=== PATIENT | male | born 1965 | race African-American/Black ===

== ENCOUNTER 2017-04-28 12:04 | Inpatient (IN) ==
[2017-04-28] MEDS ORDERED: NS 1,000 ML IV ONE ×3 (13:01→15:39)
--- NOTE | 2017-04-28 13:45 | EKG Report ---
Test Performed on : 04/28/2017 1:09:53 PM Test Reason : CHEST PAIN Blood Pressure : / mmHG Vent. Rate : 089 BPM Atrial Rate : 089 BPM P-R Int : 150 ms QRS Dur : 088 ms QT Int : 372 ms P-R-T Axes : 063 062 064 degrees QTc Int : 452 ms Normal sinus rhythm. Normal ECG No previous ECGs available Unconfirmed Result
[2017-04-28 14:18] LABS: URINE CULTURE PL NEEDED? NO
[2017-04-28 14:20] LABS: MANUAL DIFF NEEDED? NO
[2017-04-28 14:22] LABS: BASO% 0.1 % (0.0-0.8); HEMOGLOBIN 15.8 g/dL (14.0-18.0); IMM GRAN# 0.03 X1000 (0.0-0.04); IMM GRAN% 0.2 % (0.0-0.5); LYMPH# 1.82 X1000 (1.2-3.4); LYMPH% 13.7 % (20.5-51.1); MCH 27.9 PG (27-31); MCHC 35.1 g/dL (33-37); MCV 79.5 FL (81-99); MONO# 0.79 X1000 (0.11-0.59); MONO% 5.9 % (1.7-9.3); MPV 10.4 FL (7.4-10.4); NEUT% 80.1 % (42.2-75.2); PLT 354 X1000 (130-400); RBC 5.66 XMIL (4.7-6.1)
[2017-04-28 14:26] LABS: BILIRUBIN URINE NEGATIVE (NEGATIVE); BLOOD URINE NEGATIVE (NEGATIVE); CLARITY SL. CLOUDY (CLEAR); COLOR YELLOW; LEUKOCYTES URINE NEGATIVE (NEGATIVE); NITRITE URINE NEGATIVE (NEGATIVE); PROTEIN URINE NEGATIVE (NEGATIVE); UROBILINOGEN URINE NORMAL
[2017-04-28 14:30] LABS: URINE CAST WHITE CELL PRESENT /LPF; URINE EPITHELIAL CELLS <10 /HPF (<10); URINE RBC <10 /HPF (<10); URINE SOURCE CLEAN CATCH; URINE WBC <10 /HPF (<10)
[2017-04-28 14:42] LABS: ALBUMIN 4.4 g/dL (3.5-5.0); CALCIUM 9.5 mg/dL (8.8-10.2); MAGNESIUM 3.2 mg/dL (1.5-2.7); POTASSIUM 5.6 mmol/L (3.5-5.1); TOTAL BILIRUBIN 0.5 mg/dL (0.20-1.00); TOTAL PROTEIN 8.4 g/dL (6.3-8.3)
[2017-04-28 14:56] LABS: CK INDEX 2.7 (0.0-2.5); CK-MB 6.03 ng/mL (0.0-5.0)
[2017-04-28] MEDS ORDERED: HUMULIN R (PARKWAY) 100 UNITS in NS 100 ML IV SCH ×2 (15:00→15:48)
[2017-04-28 15:08] LABS: INR 1.14 (0.86-1.15); PROTIME 14.9 Seconds (12.1-15.5); PTT PL 24.2 Seconds (22.6-43.9)
[2017-04-28 15:23] LABS: BE -11.6 mmoll (-3.0-3.0); BLOOD TYPE ARTERIAL; DRAW SITE R RADIAL; METHB 1.1 % (0.0-1.5); O2(CT) 21.4 mL/dL (15.0-23.0); PCO2(98.6) 30 mmHg (35-45); PO2(98.6) 86 mmHg (60-100); SAMPLE BLOOD; SAO2 97.3 % (95.0-100.0); THB 16.1 g/dL (11.5-17.4); pH(98.6) 7.27 (7.35-7.45)
[2017-04-28 15:25] LABS: ALLEN TEST YES; MODALITY ROOM AIR
[2017-04-28] MEDS ORDERED: NS 1,000 ML ONE (15:26)
--- NOTE | 2017-04-28 16:36 | Diag Imaging Result Doc PS360 ---
EXAM: CHEST-PORTABLE INDICATION: weak TECHNIQUE: One view COMPARISON: None. FINDINGS: Inspiration is suboptimal. The lungs are grossly clear. There is no discrete pleural fluid collection or pneumothorax. There are calcified upper mediastinal lymph nodes on the right indicating prior granulomatous disease. The cardiomediastinal silhouette and central vasculature are grossly unremarkable, otherwise. IMPRESSION: Poor inspiration but no definite acute pathology. Electronically signed by Amador Tong 04/28/2017 4:33 PM
--- NOTE | 2017-04-28 17:26 | PROVIDER DOCUMENTATION ---
This chart was entered by Lisseth Galeano Scribe, acting as scribe for Ranjit Cespedes PA. HPI-General Adult - General Chief Complaint: Generalized Pain Stated Complaint: " POSSIBLY DEHYDRATED" Time Seen by Provider: 04/28/17 12:56 Source: patient Allergies/Adverse Reactions: Patient Allergies Allergy/AdvReac Type Severity Reaction Status Date / Time No Known Allergies Allergy Verified 02/08/15 20:45 Home Medications: Home Medication List Medication Instructions Recorded Confirmed Last Taken Type Canagliflozin [Invokana] 300 mg PO DAILY 04/28/17 04/28/17 04/28/17 History Fluconazole [Diflucan] 150 mg PO EVERY OTHER DAY 04/28/17 04/28/17 1 Day Ago History Losartan [Cozaar] 100 mg PO DAILY 04/28/17 04/28/17 04/28/17 History Meloxicam 15 mg PO DAILY 04/28/17 04/28/17 04/28/17 History Metformin HCl [Fortamet] 1,000 mg PO BID 04/28/17 04/28/17 04/28/17 12:20 History - History of Present Illness -Gen Adult Nature of Presenting Problems: 52 year old male presents to the ER with complaint of generalized pain since being diagnosed with type 2 diabetes earlier this week. Pt states he has not started taking his metformin yet. Pt describes his symptoms as weak, tired and with flank pain. Also complains of dry mouth. Denies fever. Location of Pain/Injury: reports: generalized Onset/Duration: reports: last week, other (this week) Timing: reports: still present Associated Symptoms: reports: fatigue, weakness, other (flank pain). denies: fever/chills - Diabetes Related Context Context: reports: other (recent type 2 diagnosis) Review of Systems - Adult - REVIEW OF SYSTEMS - ADULT Constitutional: denies: chills, fever Eyes: reports: no symptoms reported Ears, Nose, Mouth & Throat: reports: no symptoms reported Cardiovascular: reports: no symptoms reported Respiratory: reports: no symptoms reported Gastrointestinal: reports: no symptoms reported Genitourinary: reports: no symptoms reported Musculoskeletal: reports: no symptoms reported Integumentary: reports: no symptoms reported Neurological: reports: no symptoms reported Psychiatric: reports: no symptoms reported Endocrine: reports: no symptoms reported Hematologic/Lymphatic: reports: no symptoms reported Allergic/Immunologic: reports: no symptoms reported All Other Systems: Reviewed and Negative Past History - Adult - PAST MEDICAL HISTORY-ADULT Review of Records: reports: Nursing Assessment Review, Medications Reviewed Major Childhood Illnesses: reports: denies history Diabetes Type: Type 2 - PRIOR SURGERIES/PROCEDURES Surgical/Procedure History: reports: none - IMMUNIZATION STATUS Childhood Immunizations: See Nurse Assessment Flu Vaccine: See Nurse Assessment Physical Exam-General - PHYSICAL EXAM-ADULT Initial Vital Signs Reviewed: Yes - CONSTITUTIONAL General Appearance: alert - EYES Eyes: PERRL/EOMI, pink conjunctivae - HEAD, EARS, NOSE, MOUTH & THROAT HENMT: normocephalic/atraumatic, moist mucous membranes - NECK Neck: non-tender, full range of motion, normal inspection - RESPIRATORY Respiratory: chest non-tender, lungs clear - CARDIOVASCULAR Cardiovascular: normal peripheral pulses, regular rate, rhythm - GASTROINTESTINAL (ABDOMEN) Abdominal Exam: normal bowel sounds, non tender, soft, other (obese) - MUSCULOSKELETAL Back Exam: normal inspection, no CVA tenderness, no vertebral tenderness Extremity: normal range of motion, non-tender, normal gait Peripheral Pulses: radial (R): 2+, radial (L): 2+ - SKIN Integumentary: normal color, warm/dry - NEUROLOGIC Neurologic: grossly normal, no motor/sensory deficits - PSYCHIATRIC Psych/Mental Status: normal mood/affect, normal thought content, normal thought process, oriented x 3 Progress - PLAN OF CARE/RESULTS Progress/Plan/Lab Results: Vital Signs - 8 hr 04/28/17 12:12 Temperature 98 F Pulse Rate 99 H Respiratory Rate 20 Blood Pressure 161/110 O2 Sat by Pulse Oximetry 99 Orders Category Date Time Status Cardiac Monitoring DIRECTED Care 04/28/17 13:01 Active FSBS/Accucheck Result NOW Care 04/28/17 13:01 Active Saline Loc NOW Care 04/28/17 13:01 Active CBC WITH ELECTRONIC DIFF [HEME] Stat Lab 04/28/17 13:01 Uncollected CK PROFILE [SP CHEM] Stat Lab 04/28/17 13:01 Uncollected COMPREHENSIVE METABOLIC PANEL [CHEM] Stat Lab 04/28/17 13:01 Uncollected MAGNESIUM [CHEM] Stat Lab 04/28/17 13:01 Uncollected PROTIME WITH INR [COAG] Stat Lab 04/28/17 13:01 Uncollected PTT [COAG] Stat Lab 04/28/17 13:01 Uncollected TROPONIN T Stat Lab 04/28/17 13:01 Uncollected UA NIMS W/REFLEX CULT PL [URINALYSIS] Stat Lab 04/28/17 13:01 Ordered 0.9% Sodium Chloride Inj [Ns] 1,000 ml Med 04/28/17 13:01 Active IV 999 mls/hr EKG [EKG] Stat Ther 04/28/17 13:01 Ordered case and plan of care discussed with Dr. Barrera. Result Diagrams: 04/28/17 14:10 04/28/17 14:10 - XRAY 1 XRAY Study: Chest Impression: Normal, See EMR Report - CONSULTS/PCP/HOSPITALIST Notification #1 *Consult/PCP/Hospitalist*: Dr. Ray Time Discussed: 15:37 Consult Disposition: Admit Departure - Departure Date of Disposition Decision: 04/28/17 Time of Disposition Decision: 15:37 DIAGNOSIS: Hyperkalemia DKA (diabetic ketoacidoses) Qualifiers: Diabetes mellitus type: type 2 Diabetes mellitus complication detail: without coma Qualified Code(s): E13.10 - Other specified diabetes mellitus with ketoacidosis without coma Leukocytosis Qualifiers: Leukocytosis type: other Qualified Code(s): D72.828 - Other elevated white blood cell count Disposition: ADMITTED INPATIENT 09 Certified Medical Emergency: Emergent Condition: Serious - Critical Care Note This patient required my direct & personal management of CC.: Yes Total Time (mins): 30 Critical Care Statement: This patient required my direct personal management to treat or rule out processes, the absence of which, could potentiallly result in sudden, clinically significant life or limb threatening deterioration. Attestation - Physician/ [place] Attestation Patient care was provided by Advanced Practice Provider:: Yes Advanced Practice Provider:: Ranjit Cespedes Advanced Practice Provider documentation review:: The Mid-level provider documentation, treatment plan and medical decision making was reviewed by the physician who agrees with all treatment and medical decision making by the MLP. This chart was documented by the indicated scribe, (Lisseth Galeano, Scribe) and accurately reflects the services I performed and decisions made by me, Ranjit Cespedes PA, as attested by the provider's signature.
--- NOTE | 2017-04-28 18:05 | HISTORY AND PHYSICAL ---
PRIMARY CARE PHYSICIAN: Dr. Perez Ray. CHIEF COMPLAINT: Somnolence, elevated blood sugar. HISTORY OF PRESENT ILLNESS: Mr. Rojelio Urban is a 52-year-old, male, first known to me approximately 1 week prior where he was established as a new patient in the office at 52 years old. The patient was overtly obese with no major family history of diabetes, but labs were drawn regarding the risk factors and for screening for any other conditions. The patient was noted to have a blood sugar greater than 300, A1c approximately 10, and was educated on how to draw blood sugar at home. Two days after our intervention the patient was unable to obtain the hypoglycemic medication and was noting that he was increasingly somnolent with inability to wake. He was taken to the [facility] via private vehicle and was found to have acidemia with blood sugar of 450. In the emergency room 2 L of fluid have been provided along with the placement of a 6 unit/minute insulin drip and blood sugars have come down to approximately 362. The patient reports some improvement in symptoms. The patient is overtly in DKA. SOCIAL HISTORY: The patient lives at home. Denies smoking, alcohol, or illicits. He is currently . PAST MEDICAL HISTORY: Patient's past medical history is only significant for the hyperglycemia and the obesity. This establishment of care with myself was the first time patient had seen a doctor in multiple decades. SURGICAL HISTORY: None. MEDICATIONS: Current medication list is really inappropriate at this time due to patient's inability to take them. He was prescribed metformin and Invokana but states he had not taken them prior to his evaluation in the emergency room. Based on that assumption, I would dictate his medications as no medications. ALLERGIES: No known drug allergies. CODE STATUS: The patient is a full code. PHYSICAL EXAMINATION: VITAL SIGNS: Temperature 99.0 degrees, pulse 99, respirations 18, blood pressure 161/110 and now 135/95. The patient has O2 saturations of 100% on room air. Current weight is 385. Patient is approximately 6 feet 5 inches. The patient has had no intake and no notable urine output aside from the labs that are drawn. GENERAL APPEARANCE: Patient is an obese male in no acute distress at this time. HEENT: Pupils are equal, round, reactive to light. Extraocular movements are intact. Neck: Supple. No JVD. Abdomen: Protuberant. Bowel sounds are noted. CV: Regular rate. No murmurs, gallops, or rubs. Lungs: Clear to auscultation anteriorly. No rhonchi noted. Extremities: No cyanosis, clubbing, or edema. 2+ pulses at the wrists and the popliteal fossa as noted on this exam. Skin: Patient has poor turgor and multiple skin wounds on the extensor areas of the body consistent with possible psoriatic disease. States that he had chemical clemons at this time, but noting that these are on the back of the hands, the back of the elbows and the knees, further delineation should be acknowledged. LABS: WBC 13.29, with an hemoglobin and hematocrit of 15 and 45 respectively, MCV of 79.5, neutrophils 80.1, lymphocytes low at 13.7. PT/INR within normal limits. PH shows acidosis at 7.27 with a pCO2 of 30, bicarb of 15.8, lactate elevated at 3.40. Sodium 125, potassium 5.6, creatinine 1.9 with no baseline for comparison. Glucose 438 down to 372. Magnesium 3.2 with a CK 224, and CK-MB 6.03, total protein 8.4. Urine is noted to be cloudy with 2+ ketones, 3+ glucose, no signs of infection noted, we will send for culture. ASSESSMENT/PLAN: A 52-year-old, male with new onset diabetes mellitus type 2 uncontrolled, presenting with: 1. Diabetic ketoacidosis. 2. Hyponatremia. 3. Hyperkalemia. 4. Acute kidney injury. 5. Leukocytosis with left shift. 6. Hypocarbia. 7. Elevated CK. 8. Poorly controlled hypertension. Patient will be admitted to the ICU for overnight evaluation. We will continue the insulin drip along with high-volume fluid resuscitation, and we will manage the electrolytes as appropriate and give IV blood pressure medications with parameters to be used. The patient will have blood sugar checks q.2 hours with the insulin dosage to be changed as patient drops below 200 of his blood sugar. It is okay for patient to have small amounts of food as long as we avoid high concentrated sweets, and to have water p.r.n. No need for calcium at this time. No need for bicarb at this time. We will watch patient closely and expect full recovery. Patient will likely be admitted for approximately 2 days as an expectation, and we will find an outpatient therapy that he can both agree with and thrive with. cc: Perez Ray MD
[2017-04-28] MEDS ORDERED: ZOFRAN IV PRN (19:29)
[2017-04-28] MEDS ORDERED: APRESOLINE IV PRN (19:29)
[2017-04-28 20:59] LABS: CALCIUM 8.9 mg/dL (8.8-10.2); POTASSIUM 4.2 mmol/L (3.5-5.1)
[2017-04-28] MEDS ORDERED: KLONOPIN PO SCH (21:00)
[2017-04-29] MEDS ORDERED: NS 1,000 ML ONE (00:15)
[2017-04-29] MEDS: NS 1,000 ML IV SCH ×3 (02:24→16:34)
[2017-04-29 03:33] LABS: MANUAL DIFF NEEDED? NO
[2017-04-29 03:50] LABS: BASO% 0.1 % (0.0-0.8); EOS# 0.03 X1000 (0.0-0.7); EOS% 0.3 % (0.0-10.0); HEMATOCRIT 42.1 % (42.0-52.0); HEMOGLOBIN 14.6 g/dL (14.0-18.0); IMM GRAN# 0.02 X1000 (0.0-0.04); IMM GRAN% 0.2 % (0.0-0.5); LYMPH# 2.71 X1000 (1.2-3.4); LYMPH% 22.7 % (20.5-51.1); MCH 27.9 PG (27-31); MCHC 34.7 g/dL (33-37); MCV 80.3 FL (81-99); MONO# 0.86 X1000 (0.11-0.59); MONO% 7.2 % (1.7-9.3); MPV 10.4 FL (7.4-10.4); NEUT% 69.5 % (42.2-75.2); PLT 281 X1000 (130-400); RBC 5.24 XMIL (4.7-6.1)
[2017-04-29 03:59] LABS: MAGNESIUM 2.8 mg/dL (1.5-2.7); POTASSIUM 4.1 mmol/L (3.5-5.1)
[2017-04-29] MEDS: LANTUS INSULIN (PARKWAY) SUBQ SCH (08:39)
[2017-04-29] MEDS: HUMULIN R DOSE (PARKWAY) SUBQ SCH ×4 (08:40→21:40)
[2017-04-29] MEDS: COZAAR PO SCH (08:40)
--- NOTE | 2017-04-29 09:02 | PROGRESS NOTE ---
DATE: 04/29/2017 PRIMARY CARE PHYSICIAN: Dr. Perez Ray. SUBJECTIVE: Overnight, the patient was moved to the ICU bed 3, stable. No signs of distress. Insulin GGT increased to 6 minutes per hour with normal saline at 150, tolerated it well. Fasting blood sugar did drop below 200. At midnight, the patient's GGT 1.5 minutes. VITAL SIGNS: Temperature 97.8 degrees, pulse 81, respirations 18, blood pressure 168/81, O2 saturation 90% on room air. Is and Os were high-volume positive balance about 1 L with 2 L urinary voiding. PHYSICAL EXAMINATION: General: Patient is alert and oriented. No acute distress. Slightly edematous. Neck: Supple. No JVD. CV: Regular rate. No murmurs, gallops, or rubs. Lungs: Decreased breath sounds at the bilateral bases. Increased work of breathing noted. Abdomen: Protuberant, distended secondary to obesity. Bowel sounds are scant. Extremities: Lower extremities have trace edema and 2+ pulses. Otherwise within normal limits. LABS: WBC 11.9 with MCV of 80, neutrophils at 69.5. Sodium 136, BUN at 44, with a creatinine of 1.4, glucose from 241 down to 186. Magnesium 2.8 down from 3.2. BNP of 10. Chest x-ray on 04/28/2017 showed poor inspiration but no acute pathology. ASSESSMENT AND PLAN: A 52-year-old male with: 1. Diabetic ketoacidosis. 2. Hyponatremia. 3. Hyperkalemia. 4. Acute kidney injury. 5. Leukocytosis with left shift, resolved. 6. Hypocarbia. 7. Poorly controlled hypertension. PLAN: The patient will be continued a day. GGT insulin will be stopped. Patient will be placed on low-dose sliding scale insulin. We will allow p.o. intake and closely monitor. A1c has already been performed. We will restart patient's p.o. blood pressure medications and check a chest x-ray in the morning as we continue the IV fluid resuscitation for the FANNIE with the avoidance of any issues associated with fluid overload. cc: Perez Ray MD
[2017-04-29 16:21] LABS: CALCIUM 8.4 mg/dL (8.8-10.2); POTASSIUM 4.3 mmol/L (3.5-5.1)
[2017-04-29 20:50] LABS: CALCIUM 8.4 mg/dL (8.8-10.2); POTASSIUM 4.3 mmol/L (3.5-5.1)
[2017-04-29] MEDS ORDERED: KLONOPIN PO SCH (21:00)
[2017-04-30 01:55] LABS: MANUAL DIFF NEEDED? NO
[2017-04-30 02:03] LABS: BASO% 0.2 % (0.0-0.8); EOS# 0.04 X1000 (0.0-0.7); EOS% 0.4 % (0.0-10.0); HEMATOCRIT 37.6 % (42.0-52.0); HEMOGLOBIN 13.1 g/dL (14.0-18.0); IMM GRAN# 0.01 X1000 (0.0-0.04); IMM GRAN% 0.1 % (0.0-0.5); LYMPH# 3.59 X1000 (1.2-3.4); LYMPH% 35.1 % (20.5-51.1); MCH 28.2 PG (27-31); MCHC 34.8 g/dL (33-37); MONO# 0.73 X1000 (0.11-0.59); MONO% 7.1 % (1.7-9.3); MPV 9.9 FL (7.4-10.4); NEUT% 57.1 % (42.2-75.2); PLT 264 X1000 (130-400); RBC 4.64 XMIL (4.7-6.1)
[2017-04-30 02:15] LABS: AGAP 15; BUN 30 mg/dL (8-22); CALCIUM 8.3 mg/dL (8.8-10.2); CHLORIDE 96 mmol/L (98-107); COSMO 272; MAGNESIUM 2.3 mg/dL (1.5-2.7); POTASSIUM 3.6 mmol/L (3.5-5.1); SODIUM 130 mmol/L (136-145); TCO2 19 mmol/L (25-35)
[2017-04-30] MEDS: NS 1,000 ML IV SCH ×2 (05:41)
[2017-04-30] MEDS: HUMULIN R DOSE (PARKWAY) SUBQ SCH (06:47)
[2017-04-30 08:22] VITALS: BP 143/70
[2017-04-30 08:23] LABS: AGAP 16; BUN 25 mg/dL (8-22); CALCIUM 8.5 mg/dL (8.8-10.2); CHLORIDE 98 mmol/L (98-107); COSMO 280; POTASSIUM 3.9 mmol/L (3.5-5.1); SODIUM 136 mmol/L (136-145); TCO2 22 mmol/L (25-35)
--- NOTE | 2017-04-30 08:34 | DISCHARGE SUMMARY ---
ADMISSION DATE: 04/28/2017 DISCHARGE DATE: 04/30/2017 CHIEF COMPLAINT: Hypersomnolence, hyperglycemia. HISTORY OF PRESENT ILLNESS: In brief, Mr. Urban is a 52-year-old, male that is overtly obese. Presented to the clinic with elevation in A1c of greater than 10 was provided with p.o. medications as outpatient. Failed a trial and presented to the ER with a blood sugar greater than 450 and maki DKA. CONSULTS: None. IMAGING: Chest x-ray performed 04/28/2017 showed poor inspiration but no acute pathology. LABS: On discharge WBC 10.24, hemoglobin and hematocrit 13 and 37, MCV within normal limits. Sodium 130 with a potassium 3.6, anion gap of 15, creatinine down to 1.2, osmolality 272, magnesium 2.3. Microbiology shows no lab values of concern. Blood sugar ranging from approximately 313-187. PROBLEM LIST ON DISCHARGE: 1. Diabetic ketoacidosis. 2. Diabetes mellitus type 2, uncontrolled. 3. Acute kidney injury. 4. Hypocarbia. 5. Hypertension uncontrolled. 6. Hyponatremia. 7. Hyperkalemia. HOSPITAL COURSE: Patient is admitted to the ICU. Treated with high-volume fluid resuscitation along with insulin drip at approximately 6 units/hour. Titrated down over the course of the next day. Did not require any bicarbonate. P.o. supplementation was provided. Once patient's blood sugar came below 200, the patient was put on long-acting insulin with a sliding scale. Responded well to the current treatment. We will follow as an outpatient regarding the remainder of labs. Patient is in stable condition. MEDICATIONS: Please refer to medication reconciliation order form for the most up-to-date medications. The patient will be sent home on long-acting insulin plus metformin now that creatinine is down to 1.2. We will follow up in our clinic in approximately 1 week. cc: Perez Ray MD
[2017-04-30] MEDS: LANTUS INSULIN (PARKWAY) SUBQ SCH (08:59)
[2017-04-30] MEDS: COZAAR PO SCH (09:00)
[2017-04-30] MEDS ORDERED: LANTUS INSULIN (PARKWAY) SUBQ ONE (09:26)
== END 2017-04-30 13:05 | disposition home or self-care (01) ==
LOC: P.ED 12:04 → EDIPHOLD 17:09 → P.ICU 18:34 → P.MEDSURG 04-29 12:34
PROVIDERS: ADMIT Family Medicine; ATTEND Family Medicine